=== PATIENT | female | born 1955 | race Caucasian/White ===

== ENCOUNTER → 2017-02-10 | Outpatient (CLI) | payer MEDICARE, MEDICAID ==
[~2017-02-10] MED LIST: ASPIRIN FOR CHI81 MG PO; CIPRO 500MG TA500 MG PO; COLCRYS0.6 MG PO; GABAPENTIN 400400 MG PO; GLIMEPIRIDE 2MG2 MG PO; JANUVIA50 MG PO; LASIX 40MG. TAB40 MG PO; LEVAQUIN250 MG PO; LIPITOR80 MG PO; LOPRESSOR 25MG.25 MG PO; RANEXA500 M1 PO; TERAZOSIN5 MG PO; TRICOR 145 MG145 MG NG; ZANAFLEX2 M1 PO; ZETIA10 MG PO; ZOFRAN4 MG PO
--- NOTE | 2017-02-12 13:08 | RADIOLOGY REPORT PS360 ---
MRI-L-SPINE W/O, MRI-3D RENDERING/MYELOGRAM Ordering Physician: Lilian Nieves Age: 61 years: Female HISTORY: RIGHT SIDED LBP, SPINAL STENOSISlow back pain right-sided pain worse with turning over in bed ovoid from sitting to standing. Symptoms 2 months TECHNIQUE: Sagittal STIR, T1, T2, axial T1 and T2. On 1.5T Siemens wide bore MRI. 3-D MR myelogram image set obtained & performed on MRI workstation. Additional sagittal thin section T2 weighted dataset obtained from this latter acquisition as well (---76 CPT) COMPARISON : previous CT abdomen pelvis 01/23/17 FINDINGS Lumbar vertebral bodies with no compression fracture. L1 incidental prominent benign hemangioma at L1. It Spans entire height of L1, measuring 2.3 cm height and 17 mm AP. Not of clinical significance. . Levoscoliosis at L1/2 level with mild dextroscoliosis throughout the lower L-spine T11/12.. Degenerative disc space narrowing with mild disc bulge the left L1/L2. Disc space narrowing to the right with levoscoliosis at this level. Most significant is the Prominent posterior central spur, with diffuse hard disc posteriorly at this level... This effaces indents the thecal sac, most pronounced centrally.-at the level of the conus. Moderate-/pronounced Spinal stenosis at this level.. AP dimension spinal canal narrows to 6.5-mm.At midline. Facet hypertrophy bilaterally also contributes to the spinal stenosis and moderate foraminal encroachment right greater than left. Disc space narrowing to the right at this L1/2 level yield the levoscoliosis at upper L-spine L2/3. Mild circumferential disc bulge slightly more evident the left. With additional foraminal disc bulge. Mild bilateral foraminal encroachment. Mild facet and ligament flavum hypertrophy also at this level. Mild narrowing of central canal borderline spinal stenosis. L3/L4: Prominent facet hypertrophy indents the posterior aspect of thecal sac to the left more than right.. Scant disc bulge. Resulting Mild central canal stenosis.. L4/5 mild to moderate diffuse disc bulge. Moderate/generous facet hypertrophy. Borderline spinal stenosis. Mild foraminal encroachment. L5/S1. Asymmetric disc bulge to right/ broad-based with possible broad-based disc protrusion at the right. This encroaches upon entry right foramen. Moderate facet hypertrophy also contributes to foraminal encroachment Partially imaged top Large Cystic mass arising from pelvis noted-. This reflects the large pelvic cystic mass/presumed ovarian cyst mass described on January 2017 CT abdomen pelvis.. Spleen appears upper normal in size in this study as well. No significant osseous lesions or significant retroperitoneal adenopathy incidental encountered otherwise. IMPRESSION: 1. L1/2: Posterior Hard disc with a very large central spur. This yields prominent central canal stenosis with moderate bilateral foraminal encroachment.. Most pronounced spinal stenosis & overall findings at this level. 2. Degenerative disc changes and prominent facet hypertrophy at multiple other levels These features Yield borderline to mild central canal stenosis at L2/3, L3/L4/5.-As detailed in text 3 Also L5/S1 with generous asymmetric disc bulge to the right which slightly effaces thecal sac to the right & encroaches upon the right foramen. 4. Again incidentally note the large partially imaged large cystic mass arising from the pelvis as discussed on recent CT abdomen..
== END ==
LOC: RAD 10:50
DX: M54.5 Low back pain (principal); M48.06 Spinal stenosis, lumbar region; M51.36 Other intervertebral disc degeneration, lumbar region

== ENCOUNTER → 2017-03-16 | Outpatient (CLI) | payer MEDICARE, MEDICAID ==
[2017-03-16 09:45] LABS: LYMPH # 1.4 K/mm3 (0.7-4.5); LYMPH % 26.3 % (10-50.0)
[2017-03-16 09:50] LABS: HEMOGLOBIN 11.4 g/dL (12.2-16.2)
[2017-03-16 10:56] LABS: BUN 24 mg/dL (7-18)
[2017-03-16 10:57] LABS: GFR (ESTIMATED) 28 ML/MIN (59-)
== END ==
LOC: LAB 09:12
PROVIDERS: Nurse Practitioner Obstetrics & Gynecology
DX: N83.209 Unspecified ovarian cyst, unspecified side (principal); E11.8 Type 2 diabetes mellitus with unspecified complications; Z01.812 Encounter for preprocedural laboratory examination

== ENCOUNTER 2017-03-18 06:07 | Day surgery (SDC) | payer MEDICARE, MEDICAID ==
[~2017-03-18] VITALS: Ht 167.6 cm; Wt 122.5 kg
--- NOTE | 2017-03-18 09:07 | Operative Note ---
Procedure/Operative Record Procedure Date of procedure: 03/18/17 Pre-Op Dx: RIGHT ovarian cyst Post-Op Dx: RIGHT ovarian cyst Procedure performed: Laparoscopic RIGHT salpingo-oophorectomy Surgeon: Dr. Yohannes Laurent Warehouse Team Leader(s): None Anesthesia: Anjel Oseas EBL (ml): 50 Clinical note: She is a 62-year-old lady who complains of some RIGHT lower quadrant pain. An ultrasound and CT showed that she had a 10 cm RIGHT ovarian cyst. I reviewed her ultrasound and it appeared to be a simple cyst. There were no excrescences. CA- 125 was 4.8. As result of that she was offered laparoscopic RIGHT salpingo- oophorectomy. Operative findings: She had a 10 cm ovarian cyst that was sitting in the deep pelvis. It had clear straw-colored fluid. It appeared to be a simple cyst. There was no seeding of the pelvic cavity consistent with an immature carcinoma. The upper abdomen appeared normal. There were some adhesions on the RIGHT side of omentum to the anterior abdominal wall. There were adhesions in the upper abdomen as well. She' s had previous surgery. Operative note: She was taken the operating room where general anesthesia was found be adequate. She was prepped and draped in normal sterile fashion in the semi-lithotomy position. A weighted speculum was placed in vagina and the anterior lip of the cervix was grasped with a tenaculum. I then dilated the cervix to approximately 3 mm and placed an acorn retractor within the cervical canal. I changed gloves and then injected proxy 10 mL of 0.5 percent ropivacaine around the umbilicus. I made a small incision within the mellitus and inserted a Veress needle into the abdominal cavity. The abdominal cavity was then insufflated with carbon monoxide gas to a pressure of 20 as mercury. Using 11 mm trocar under direct vision I then entered the abdominal cavity. I then injected through and through the pubic hairline using ropivacaine. I made a small incision and inserted a 5 mm trocar under direct vision. I then identified the inferior epigastric arteries on the LEFT side, went lateral to these and injected through and through. Once again I inserted a 5 mm trocar here under direct vision. I then inspected the pelvic cavity and the ovary was included a filling pelvis. Since it appeared to be benign I used harmonic scalpel to make a small hole within the ovary. I then suctioned the contents from the ovary. This was sent to pathology for review. I then grasped the RIGHT round ligament and using Harmonic scalpel opened this up. I then cut across the utero-ovarian ligament. I then freed up the ovary on its infundibular pelvic ligament. I then placed 2 Endoloops on the infundibula pelvic ligament. The ovary and tube were then cut away from the ligament. I then placed an Endo Catch bag through the 11 mm trocar and inserted the ovary and tube within the bag. This was then removed through the 11 mm trocar site. There was a small amount of ooze on the RIGHT side of the uterus and using harmonic scalpel I was able to obtain excellent hemostasis here. I then elected to place a large piece of Surgicel snow across the RIGHT side of the uterus. The gas was allowed out of the abdomen and once again I assured hemostasis. The secondary trochars were then removed under direct vision. The sites were hemostatic. I then removed the primary trocar and camera. I grasped the fascia around the umbilicus with Mirian clamps and then closed the fascial incision with interrupted 0 Vicryl suture. I then closed the deep tissues with interrupted 2-0 Vicryl suture. The skin was closed with running subcuticular 4-0 Monocryl suture. The 5 mm trocar sites were closed with subcuticular 4-0 Monocryl suture. Sterile dressings were applied. The patient tolerated the procedure well and was taken to the recovery room in excellent condition. All sponge instrument and needle counts were correct. Estimate a blood loss was approximately 50 mL. Conplications: None Specimens: RIGHT ovary and tube at 0906
--- NOTE | 2017-03-18 09:20 | Anesthesia Record ---
Anesthesia Record Part I Total IV fluids: 700 EBL (ml): 100 Urine Output: 75 B/P: 140/70 % SaO2: 93 Pulse: 68 Resps: 20 Temp: 97.7 Patient is: Nasal O2 Stable to PACU at: 0912 at 0919
--- NOTE | 2017-03-18 09:21 | Anesthesia Record ---
Anesthesia Record Part II Discharge time: 951 Destination: Same day surgery PACU nurse assessment review? Yes Patient is: Nasal O2 Anesthesia complications? No at 0921
[2017-03-18 15:34] VITALS: BP 131/73
== END 2017-03-18 11:30 | disposition home or self-care (01) ==
LOC: SDC 06:07
PROVIDERS: Nurse Practitioner Obstetrics & Gynecology
PROC: 0UT54ZZ Resection of Right Fallopian Tube, Percutaneous Endoscopic Approach (ICD-10-PCS; 2017-03-18)
PROC: 0UT04ZZ Resection of Right Ovary, Percutaneous Endoscopic Approach (ICD-10-PCS; principal; 2017-03-18 07:30)
DX: N83.201 Unspecified ovarian cyst, right side (principal); E11.8 Type 2 diabetes mellitus with unspecified complications
CPT/HCPCS: J0131; J2405; J2710

== ENCOUNTER → 2017-05-12 | Outpatient (CLI) | payer MEDICARE, MEDICAID ==
--- NOTE | 2017-05-16 11:21 | RADIOLOGY REPORT PS360 ---
DIG MAMM-SCREEN [facility] W/CAD CAD Screening COMPARISON: Digital mammograms 09/27/2012 and analog mammograms 09/03/1998 INDICATION: There is no personal or family history of breast cancer TECHNIQUE: Standard CC and MLO images were obtained. R2 CAD reviewed. FINDINGS: The breasts are closed primarily of fat with minimal scattered fibroglandular densities noted. There is faint arterial calcification in each breast. There is a benign-appearing calcification in each breast. There is no suspicious lesion and there are no suspicious microcalcifications. IMPRESSION: Fatty type breast parenchyma with no suspicious lesion seen recommend yearly follow-up BI-RADS CATEGORY: 2_Benign RECOMMENDED FOLLOWUP: 12M 12 MONTH FOLLOW-UP (A letter has been sent to the patient regarding results of the study.)
== END ==
LOC: RAD 09:30
DX: Z12.31 Encounter for screening mammogram for malignant neoplasm of breast (principal)
CPT/HCPCS: G0202

== ENCOUNTER → 2017-06-22 | Outpatient (CLI) | payer MEDICARE, MEDICAID ==
[2017-06-22 11:38] LABS: AEROMONAS NOT DETECTED (NOT DETECTE); ASTROVIRUS NOT DETECTED (NOT DETECTE); CYCLOSPORA CAYETANENSIS NOT DETECTED (NOT DETECTE); E COLI O157 NOT DETECTED (NOT DETECTE); ENTEROAGGREGATIVE E COLI NOT DETECTED (NOT DETECTE); ENTEROPATHOGENIC E COLI NOT DETECTED (NOT DETECTE); ENTEROTOXIGENIC E COLI NOT DETECTED (NOT DETECTE); NOROVIRUS NOT DETECTED (NOT DETECTE); SAPOVIRUS NOT DETECTED (NOT DETECTE); SHIGA-LIKE TOXIN PROD. E COLI NOT DETECTED (NOT DETECTE); SHIGELLA/ENTEROINVASIVE E COLI NOT DETECTED (NOT DETECTE); VIBRIO CHOLERAE NOT DETECTED (NOT DETECTE)
[2017-06-26 16:40] LABS: Pancreatic Elastase, Fecal >500 (>200)
[2017-06-30 14:40] LABS: Lactoferrin, Fecal, Quant. <1.00 ug/mL(g) (0.00-7.24)
== END ==
LOC: LAB 10:39
PROVIDERS: Physician Assistant Medical
DX: K52.9 Noninfective gastroenteritis and colitis, unspecified (principal)